=== PATIENT | male | born 1975 | race Caucasian/White ===

== ENCOUNTER 2023-09-09 10:15 | Day surgery (SDC) | payer OTHER ==
[~2023-09-09] VITALS: Ht 157.5 cm; Wt 74.8 kg
[2023-09-09] MEDS ORDERED: diphenhydrAMINE 50 MG/ML VIAL ONE (10:56)
[2023-09-09] MEDS ORDERED: LIDOCAINE 2% 100 MG/5 ML UJET TP ONE (10:57)
[2023-09-09] MEDS ORDERED: MIDAZOLAM 5 MG/5 ML VIAL ONE (10:57)
[2023-09-09] MEDS ORDERED: fentaNYL citrate 0.05 MG/ML VIAL ONE (10:57)
== END 2023-09-09 12:30 | disposition home or self-care (01) ==
LOC: MOR 10:15 → MMU 10:15 → MOR 12:30
PROVIDERS: ATTEND Internal Medicine Gastroenterology
DX: Z09 Encounter for follow-up examination after completed treatment for conditions other than malignant neoplasm (principal); K63.5 Polyp of colon; Z86.010 Personal history of colon polyps; F17.210 Nicotine dependence, cigarettes, uncomplicated
CPT/HCPCS: 45385; 82948; 88305; J1200; J2250; J3010